=== PATIENT | female | born 1970 | race American Indian/Alaskan Native ===

== ENCOUNTER 2018-03-21 16:19 | Emergency (ER) | payer MEDICARE ==
[2018-03-21 19:14] LABS: Basophils # (Auto) 0.1 K/mm3 (0.0-0.1); Basophils % (Auto) 1.3 % (0.0-1.8); Eosinophils # (Auto) 0.1 K/mm3 (0.0-0.4); Eosinophils % (Auto) 1.6 % (0.0-4.3); Hematocrit 25.9 % (30.3-42.9); Lymphocytes # (Auto) 2.2 K/mm3 (1.2-5.4); Lymphocytes % (Auto) 24.3 % (13.4-35.0); Mean Corpuscular HGB Conc 31 % (30-34); Mean Corpuscular Volume 72 fl (79-97); Monocytes # (Auto) 0.8 K/mm3 (0.0-0.8); Monocytes % (Auto) 8.5 % (0.0-7.3); Platelet Count 238 K/mm3 (140-440); Red Cell Distribution Width 19.4 % (13.2-15.2)
[2018-03-21 19:15] LABS: Mean Corpuscular Hemoglobin 22 pg (28-32)
[2018-03-21 19:25] LABS: BUN/Creatinine Ratio 6; Blood Urea Nitrogen 5 mg/dL (7-17); Calcium 8.9 mg/dL (8.4-10.2); Hemolysis Index 19
[2018-03-22] MEDS ORDERED: NACL 0.9% 1000 ML 1,000 ML IV ONE (03:29)
[2018-03-22] MEDS ORDERED: ZOFRAN IV ONE (03:29)
--- NOTE | 2018-03-22 03:49 | Emergency Department Report ---
ED General Adult HPI - General Chief complaint: Abdominal Pain Stated complaint: NAUSEA/VOMITING/DIARRHEA Source: patient Mode of arrival: Ambulatory Limitations: No Limitations - History of Present Illness Initial comments: Patient is a 47-year-old female with significant past medical history who presents with nausea and vomiting and diarrhea that has been going on for the last couple of days. Patient says abdominal pain as an 8 out 10 is a sore type of pain she is having diarrhea when this pains or hurts. Nothing in particular makes the pain better or worse. Patient denies having any sick contacts. - Related Data Home Medications Medication Instructions Recorded Confirmed Last Taken Atenolol [Tenormin] 25 mg PO DAILY 02/20/14 02/20/14 02/20/14 Previous Rx's Medication Instructions Recorded Last Taken Type Ibuprofen [Motrin] 600 mg PO Q6H PRN #20 tablet 02/21/14 Unknown Rx Meclizine [Antivert] 25 mg PO TID PRN #12 tablet 02/21/14 Unknown Rx Metoclopramide HCl [Reglan] 10 mg PO Q6H PRN #10 tablet 02/21/14 Unknown Rx Promethazine [Phenergan TAB] 25 mg PO Q6HR PRN #30 tab 03/22/18 Unknown Rx Allergies Allergy/AdvReac Type Severity Reaction Status Date / Time No Known Allergies Allergy Unverified 02/20/14 23:04 ED Review of Systems ROS: Stated complaint: NAUSEA/VOMITING/DIARRHEA Other details as noted in HPI Constitutional: denies: chills, fever Eyes: denies: eye pain, eye discharge, vision change ENT: denies: ear pain, throat pain Respiratory: denies: cough, shortness of breath, wheezing Cardiovascular: denies: chest pain, palpitations Endocrine: no symptoms reported Gastrointestinal: nausea, vomiting, diarrhea. denies: abdominal pain Genitourinary: denies: urgency, dysuria, discharge Musculoskeletal: denies: back pain, joint swelling, arthralgia Skin: denies: rash, lesions Neurological: denies: headache, weakness, paresthesias Psychiatric: denies: anxiety, depression Hematological/Lymphatic: denies: easy bleeding, easy bruising ED Past Medical Hx - Past Medical History Previous Medical History?: No Additional medical history: Vaginal delivery 1993 - Surgical History Additional Surgical History: Tubaligation 1993, - Social History Smoking Status: Unknown if ever smoked Substance Use Type: None - Medications Home Medications: Home Medications Medication Instructions Recorded Confirmed Last Taken Type Atenolol [Tenormin] 25 mg PO DAILY 02/20/14 02/20/14 02/20/14 History Ibuprofen [Motrin] 600 mg PO Q6H PRN #20 tablet 02/21/14 Unknown Rx Meclizine [Antivert] 25 mg PO TID PRN #12 tablet 02/21/14 Unknown Rx Metoclopramide HCl [Reglan] 10 mg PO Q6H PRN #10 tablet 02/21/14 Unknown Rx Promethazine [Phenergan TAB] 25 mg PO Q6HR PRN #30 tab 03/22/18 Unknown Rx ED Physical Exam - General Limitations: No Limitations General appearance: alert, in no apparent distress - Head Head exam: Present: atraumatic, normocephalic - Eye Eye exam: Present: normal appearance - ENT ENT exam: Present: mucous membranes moist - Neck Neck exam: Present: normal inspection - Respiratory Respiratory exam: Present: normal lung sounds bilaterally. Absent: respiratory distress - Cardiovascular Cardiovascular Exam: Present: regular rate, normal rhythm. Absent: systolic murmur, diastolic murmur, rubs, gallop - GI/Abdominal GI/Abdominal exam: Present: soft, normal bowel sounds - Extremities Exam Extremities exam: Present: normal inspection - Back Exam Back exam: Present: normal inspection - Neurological Exam Neurological exam: Present: alert, oriented X3 - Psychiatric Psychiatric exam: Present: normal affect, normal mood - Skin Skin exam: Present: warm, dry, intact, normal color. Absent: rash ED Course Vital Signs 03/21/18 03/22/18 03/22/18 16:39 01:39 04:04 Temperature 98.2 F Pulse Rate 86 81 Respiratory 16 19 18 Rate Blood Pressure 168/94 Blood Pressure 157/76 [Left] O2 Sat by Pulse 100 100 Oximetry ED Medical Decision Making - Lab Data Result diagrams: 03/21/18 18:48 03/21/18 18:48 Lab Results 03/21/18 03/21/18 Range/Units 18:48 18:48 WBC 9.1 (4.5-11.0) K/mm3 RBC 3.60 L (3.65-5.03) M/mm3 Hgb 8.0 L (10.1-14.3) gm/dl Hct 25.9 L (30.3-42.9) % MCV 72 L (79-97) fl MCH 22 L (28-32) pg MCHC 31 (30-34) % RDW 19.4 H (13.2-15.2) % Plt Count 238 (140-440) K/mm3 Lymph % (Auto) 24.3 (13.4-35.0) % [place] % (Auto) 8.5 H (0.0-7.3) % Eos % (Auto) 1.6 (0.0-4.3) % Baso % (Auto) 1.3 (0.0-1.8) % Lymph # 2.2 (1.2-5.4) K/mm3 [place] # 0.8 (0.0-0.8) K/mm3 Eos # 0.1 (0.0-0.4) K/mm3 Baso # 0.1 (0.0-0.1) K/mm3 Seg Neutrophils % 64.3 (40.0-70.0) % Seg Neutrophils # 5.9 (1.8-7.7) K/mm3 Sodium 138 (137-145) mmol/L Potassium 4.1 (3.6-5.0) mmol/L Chloride 98.0 (98-107) mmol/L Carbon Dioxide 24 (22-30) mmol/L Anion Gap 20 mmol/L BUN 5 L (7-17) mg/dL Creatinine 0.9 (0.7-1.2) mg/dL Estimated GFR > 60 ml/min BUN/Creatinine Ratio 6 % Glucose 111 H (65-100) mg/dL Calcium 8.9 (8.4-10.2) mg/dL - Medical Decision Making Chief medical diagnosis: Gastroenteritis Differential multiple diagnosis: Pancreatitis, hypokalemia I'll get CBC, BM, IV fluids, IV pain medicine IV antiemetics and I will reevaluate the patient. Critical care attestation.: If time is entered above; I have spent that time in minutes in the direct care of this critically ill patient, excluding procedure time. ED Disposition Clinical Impression: Gastroenteritis Disposition: DC-01 TO HOME OR SELFCARE Is pt being admited?: No Does the pt Need Aspirin: No Condition: Stable Instructions: Abdominal Pain (ED) Prescriptions: Promethazine [Phenergan TAB] 25 mg PO Q6HR PRN #30 tab PRN Reason: Nausea Referrals: SAI MORALES [Other] - 3-5 Days
[2018-03-22] MEDS ORDERED: SUBLIMAZE IV ONE ×2 (03:56→04:46)
[2018-03-22] MEDS ORDERED: ZOFRAN ONE (04:00)
[2018-03-22] MEDS ORDERED: SUBLIMAZE ONE (04:00)
[2018-03-22] MEDS ORDERED: NACL 0.9% 1000 ML ONE (04:00)
[2018-03-22] MEDS ORDERED: PERCOCET 5/325 PO ONE (04:46)
[2018-03-22 05:47] VITALS: BP 136/56
== END 2018-03-22 05:40 | disposition home or self-care (01) ==
LOC: ED 16:19
DX: K52.9 Noninfective gastroenteritis and colitis, unspecified (principal); Z98.51 Tubal ligation status
CPT/HCPCS: 36415; 80048; 85025; 96361; 96374; 96375; 96376; 99283; J2405; J3010; J7030